=== PATIENT | female | born 1995 | race Caucasian/White ===

== ENCOUNTER 2017-12-18 13:34 | Emergency (ER) | payer SELFPAY ==
[~2017-12-18] VITALS: Ht 157.5 cm; Wt 108.3 kg
[2017-12-18 14:45] VITALS: BP 126/83
== END 2017-12-18 15:42 | disposition home or self-care (01) ==
LOC: ER 13:34
DX: H60.502 Unspecified acute noninfective otitis externa, left ear (principal); J45.909 Unspecified asthma, uncomplicated; F17.200 Nicotine dependence, unspecified, uncomplicated; Z91.018 Allergy to other foods; Z98.890 Other specified postprocedural states
CPT/HCPCS: 99283